=== PATIENT | male | born 1995 | race Caucasian/White ===

== ENCOUNTER 2022-01-10 23:08 | Emergency (ER) | payer SELFPAY ==
[2022-01-11 01:05] LABS: INFLUENZA A NAA NEGATIVE (NEGATIVE)
[2022-01-11 01:08] LABS: CORONAVIRUS 2019 SARS-COV-2 POSITIVE (NEGATIVE)
== END 2022-01-11 01:02 | disposition home or self-care (01) ==
LOC: FER 23:08
PROVIDERS: Emergency Medicine
DX: U07.1 COVID-19 (principal); J06.9 Acute upper respiratory infection, unspecified; F17.200 Nicotine dependence, unspecified, uncomplicated; Z88.1 Allergy status to other antibiotic agents; Z88.2 Allergy status to sulfonamides
CPT/HCPCS: 99283; J1885; U0002